=== PATIENT | female | born 1980 ===

== ENCOUNTER 2018-03-11 22:19 | Outpatient (CLI) | payer OTHER ==
[2018-03-11] MEDS ORDERED: PRENATAL TABLE1 EAC1 PO (22:22)
== END 2018-03-12 10:30 | disposition home or self-care (01) ==
LOC: OBS/DEL 22:19
DX: O60.03 Preterm labor without delivery, third trimester (principal); O98.813 Other maternal infectious and parasitic diseases complicating pregnancy, third trimester; B37.49 Other urogenital candidiasis; Z34.83 Encounter for supervision of other normal pregnancy, third trimester